=== PATIENT | male | born 1990 | race African-American/Black ===

== ENCOUNTER 2018-12-15 15:23 | Emergency (ER) | payer OTHER ==
[~2018-12-15] VITALS: Ht 182.9 cm; Wt 68.2 kg
[2018-12-15 15:29] VITALS: BP 143/89; PULSE 94; RESP 18; Ht 182.9 cm; Wt 68.2 kg
[2018-12-15] MEDS ORDERED: KETOROLAC 30 MG INJ IM STA (16:18)
[2018-12-15] MEDS ORDERED: NAPR-985 PO (16:20)
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
[2018-12-15] MEDS ORDERED: TRAM50TA2 PO (17:39)
== END 2018-12-15 17:47 | disposition home or self-care (01) ==
LOC: FTE 15:23
DX: S22.32XA Fracture of one rib, left side, initial encounter for closed fracture (principal); V49.40XA Driver injured in collision with unspecified motor vehicles in traffic accident, initial encounter
CPT/HCPCS: 71100; J1885; 96372